=== PATIENT | female | born 1955 | race Caucasian/White ===

== ENCOUNTER 2017-08-03 08:43 | Inpatient (IN) | payer MEDICARE, OTHER ==
[~2017-08-03] VITALS: Ht 144.8 cm; Wt 82.2 kg
[~2017-08-03 08:43] MED LIST: ACET325 PO; ALBIPROI; ALBU.083IS; ALBU.083IS IH; ALBU3IS; ALBU90OI; ALBU90OI INH; ALBU90OI6 INH; ALBU90OI61; ALBUTEROL/ATROVENT; ALEN35 PO; ALUMAG30SU PO; AZIT250 PO; AZIT500 PO; BREO ELLIPTA 21 EACH IH; BROVANA; BUDE.25 NEB; CEFP250 PO; CEPH500 PO; CYCL10 PO; DIAZEPAM; DOXY100 PO; ERGO50000 PO; ESOM20 PO; ESTROGEN; FLUSAL5005; FURO40; FURO40 PO; GAMMAGARD S-D 55 GM IV; HYDACE10B; HYDACE10B PO; HYDACE5 PO; IPRAIS; IPRAIS NEB; LEVFLO500 PO; LORA1 PO; METPRE4DP PO; MORP15ER PO; MORP30ER PO; NITR100; OXYACE7.5T PO; OXYC5 PO; OXYGEN; PANT40; PANT40 PO; POTA10T; POTA10T PO; POTCHL20ER; POTCHL20ER PO; PRED10 PO; PRED20; PRED20 PO; PREG75 PO; PRO AIR; PROACE100; PROM25 PO; RXHYDACE PO; STOOL SOFTNER; SULTRIDS PO; TEMA15 PO; TEMAZEPAM; [UNRECOGNIZED DRUG - CODE]; [UNRECOGNIZED DRUG - OTHER]
[2017-08-03 09:57] LABS: BASOPHILS ABSOLUTE AUTO 0.01 K/mm3 (0.00-0.23); BASOPHILS PERCENT AUTO 0 % (0-2); EOSINOPHILS PERCENT AUTO 0 % (0-6); Hematocrit 50.4 % (33.0-51.0); Hemoglobin 16.4 g/dL (11.5-16.0); IMMATURE GRAN ABSOLUTE AUTO 0.04 K/mm3 (0.00-0.10); IMMATURE GRAN PERCENT AUTO 0 % (0-1); LYMPHOCYTES ABSOLUTE AUTO 1.44 K/mm3 (0.84-5.20); LYMPHOCYTES PERCENT AUTO 12 % (21-46); MONOCYTES ABSOLUTE AUTO 1.53 K/mm3 (0.16-1.47); MONOCYTES PERCENT AUTO 13 % (4-13); Mean Corpuscular HGB 28.8 pg (26.0-34.0); Mean Corpuscular HGB Conc 32.5 g/dL (31.5-36.5); Mean Corpuscular Volume 88 fL (80-100); Mean Platelet Volume 10.4 fL (9.1-12.4); NEUTROPHILS PERCENT AUTO 75 % (41-73); Platelet Count 286 K/mm3 (150-400); RDW Coefficient Variation 15.5 % (11.7-14.2); RDW Standard Deviation 50.1 fL (35.1-46.3); White Blood Cell Count 11.82 K/mm3 (4.00-11.30)
[2017-08-03 10:10] LABS: Influenza A Positive (NEGATIVE); Influenza B Negative (NEGATIVE)
[2017-08-03 10:17] LABS: Alanine Aminotransfer (ALT/SGP 36 U/L (12-78); Albumin, Blood 3.5 g/dL (3.4-5.0); Albumin/Globulin Ratio 0.8 (0.8-1.8); Alk Phos 109 U/L (50-136); Anion Gap 8 mmol/L (6-16); Aspartate Aminotrans (AST/SGOT 26 U/L (12-37); Bilirubin, Total 0.5 mg/dL (0.1-1.0); Blood Urea Nitrogen 10 mg/dL (8-24); Bun/Creatinine Ratio 10.7 (12.0-20.0); CO2, Blood 28 mmol/L (21-32); Calcium, Blood 8.7 mg/dL (8.5-10.1); Chloride, Blood 104 mmol/L (98-108); Creatinine, Blood 0.94 mg/dL (0.40-1.00); Globulin, Blood 4.2 g/dL (2.2-4.0); Glomerular Filtration Rate >60 (60-); Glucose, Blood 88 mg/dL (70-99); Magnesium, Blood 2.1 mg/dL (1.6-2.4); Potassium, Blood 3.6 mmol/L (3.5-5.5); Sodium, Blood 140 mmol/L (136-145); Total Protein, Blood 7.7 g/dL (6.4-8.2); Troponin I <0.015 ng/mL (0.000-0.040)
[2017-08-03] MEDS ORDERED: ALBU90OI6 INH (10:41)
[2017-08-04 04:25] LABS: Anion Gap 8 mmol/L (6-16); Blood Urea Nitrogen 12 mg/dL (8-24); Bun/Creatinine Ratio 17.5 (12.0-20.0); CO2, Blood 24 mmol/L (21-32); Chloride, Blood 108 mmol/L (98-108); Creatinine, Blood 0.69 mg/dL (0.40-1.00); Glomerular Filtration Rate >60 (60-); Glucose, Blood 149 mg/dL (70-99); Potassium, Blood 4.3 mmol/L (3.5-5.5); Sodium, Blood 140 mmol/L (136-145)
[2017-08-04 04:26] LABS: Calcium, Blood 7.7 mg/dL (8.5-10.1)
[2017-08-04 17:07] LABS: Source, Urine Voided
[2017-08-04 17:40] LABS: Appearance, Urine Clear (Clear); Bilirubin, Urine Neg (Neg); Blood, Urine 3+ (Neg); Color, Urine Yellow (P-Yellow); Glucose Qualitative, Urine Neg (Neg); Ketones, Urine Neg (Neg); Leukocyte Esterase, Urine Neg (Neg); Nitrite, Urine Neg (Neg); Protein, Urine Neg (Neg); Urobilinogen, Urine NORM (Normal)
[2017-08-04 18:20] LABS: Bacteria Few /hpf; Red Blood Cells, Urine 0-2 /hpf (0-2); Squamous Epithelial Cells Few /hpf (Few); White Blood Cells, Urine 0-2 /hpf (0-5)
[2017-08-06] MEDS ORDERED: AZIT250 PO (10:19)
[2017-08-06] MEDS ORDERED: OSEL75CA PO (10:20)
== END 2017-08-06 12:02 | disposition home or self-care (01) | DRG 193 ==
LOC: ER 08:43 → PCU 10:00 → ERHOLD 10:00 → PCU 11:38 → EDPENDDIS 08-06 08:42 → ENPENDDIS 08-06 08:42 → PCU 08-06 12:02
PROVIDERS: Emergency Medicine; Family Medicine; Psychiatry & Neurology Psychiatry
DX: J10.1 Influenza due to other identified influenza virus with other respiratory manifestations (principal); J96.21 Acute and chronic respiratory failure with hypoxia; J45.901 Unspecified asthma with (acute) exacerbation; I11.0 Hypertensive heart disease with heart failure; I50.9 Heart failure, unspecified; Z99.81 Dependence on supplemental oxygen; K21.9 Gastro-esophageal reflux disease without esophagitis; M81.0 Age-related osteoporosis without current pathological fracture; M79.7 Fibromyalgia; G89.29 Other chronic pain; M54.9 Dorsalgia, unspecified; Z79.52 Long term (current) use of systemic steroids; Z79.899 Other long term (current) drug therapy; Z88.5 Allergy status to narcotic agent; Z91.018 Allergy to other foods; Z87.891 Personal history of nicotine dependence
CPT/HCPCS: 36415; 71045; 80048; 80053; 81001; 82947; 83735; 84484; 85025; 87804; 93005; 93010; 94640; 94644; 94760; 96365; 96375; 99285; J1650; J2930; J3475; J7030

== ENCOUNTER 2018-04-20 10:10 | Emergency (ER) | payer OTHER, MEDICARE ==
[~2018-04-20] VITALS: Ht 144.8 cm; Wt 78.0 kg
[~2018-04-20 10:10] MED LIST changes: +OSEL75CA PO
[2018-04-20] MEDS ORDERED: CYCL10 PO (11:40)
== END 2018-04-20 11:45 | disposition home or self-care (01) ==
LOC: ER 10:10
DX: M25.512 Pain in left shoulder (principal); M54.2 Cervicalgia; J45.909 Unspecified asthma, uncomplicated; I50.9 Heart failure, unspecified; K21.9 Gastro-esophageal reflux disease without esophagitis; Z87.891 Personal history of nicotine dependence; Z88.8 Allergy status to other drugs, medicaments and biological substances; Z88.5 Allergy status to narcotic agent; Z79.899 Other long term (current) drug therapy; Z79.52 Long term (current) use of systemic steroids; Z79.51 Long term (current) use of inhaled steroids; V89.2XXA Person injured in unspecified motor-vehicle accident, traffic, initial encounter
CPT/HCPCS: 99283

== ENCOUNTER 2018-12-25 16:48 | Observation (INO) | payer MEDICARE, OTHER ==
[~2018-12-25] VITALS: Ht 152.4 cm; Wt 82.8 kg
[~2018-12-25 16:48] MED LIST changes: +Percocet 5-3251 EACH PO
[2018-12-25 17:25] LABS: BASOPHILS ABSOLUTE AUTO 0.06 K/mm3 (0.00-0.23); BASOPHILS PERCENT AUTO 0 % (0-2); EOSINOPHILS ABSOLUTE AUTO 0.16 K/mm3 (0.00-0.68); EOSINOPHILS PERCENT AUTO 1 % (0-6); Hematocrit 51.6 % (33.0-51.0); Hemoglobin 16.3 g/dL (11.5-16.0); IMMATURE GRAN ABSOLUTE AUTO 0.12 K/mm3 (0.00-0.10); IMMATURE GRAN PERCENT AUTO 1 % (0-1); LYMPHOCYTES ABSOLUTE AUTO 4.71 K/mm3 (0.84-5.20); LYMPHOCYTES PERCENT AUTO 18 % (21-46); MONOCYTES PERCENT AUTO 8 % (4-13); Mean Corpuscular HGB 28.4 pg (26.0-34.0); Mean Corpuscular HGB Conc 31.6 g/dL (31.5-36.5); Mean Corpuscular Volume 90 fL (80-100); Mean Platelet Volume 10.4 fL (9.1-12.4); NEUTROPHILS ABSOLUTE AUTO 18.54 K/mm3 (1.96-9.15); NEUTROPHILS PERCENT AUTO 72 % (41-73); Platelet Count 278 K/mm3 (150-400); RDW Coefficient Variation 14.1 % (11.7-14.2); RDW Standard Deviation 46.7 fL (35.1-46.3); Red Blood Cell Count 5.73 M/mm3 (3.80-5.20); White Blood Cell Count 25.69 K/mm3 (4.00-11.30)
[2018-12-25 17:42] LABS: Alanine Aminotransfer (ALT/SGP 29 U/L (12-78); Albumin, Blood 3.5 g/dL (3.4-5.0); Albumin/Globulin Ratio 0.9 (0.8-1.8); Alk Phos 123 U/L (50-136); Anion Gap 7 mmol/L (6-16); Aspartate Aminotrans (AST/SGOT 21 U/L (12-37); Bilirubin, Total 0.8 mg/dL (0.1-1.0); Blood Urea Nitrogen 12 mg/dL (8-24); Bun/Creatinine Ratio 12.8 (12.0-20.0); CO2, Blood 28 mmol/L (21-32); Calcium, Blood 9.1 mg/dL (8.5-10.1); Chloride, Blood 105 mmol/L (98-108); Creatinine, Blood 0.94 mg/dL (0.40-1.00); Globulin, Blood 3.9 g/dL (2.2-4.0); Glomerular Filtration Rate >60 (60-); Glucose, Blood 92 mg/dL (70-99); Potassium, Blood 3.8 mmol/L (3.5-5.5); Sodium, Blood 140 mmol/L (136-145); Total Protein, Blood 7.4 g/dL (6.4-8.2); Troponin I <0.015 ng/mL (0.000-0.040)
[2018-12-25 18:21] LABS: PCO2 Arterial 31.8 mmHg (35-45); PO2 Arterial 69.5 mmHg (80-100); pH Blood Arterial 7.51 (7.35-7.45)
[2018-12-25] MEDS ORDERED: POTCHL10ER PO (20:27)
[2018-12-25] MEDS ORDERED: LORA1 PO (20:27)
[2018-12-25] MEDS ORDERED: TEMA15 PO (20:28)
[2018-12-25] MEDS ORDERED: OXYC5 PO (20:29)
[2018-12-26 04:43] LABS: Anion Gap 11 mmol/L (6-16); Blood Urea Nitrogen 13 mg/dL (8-24); CO2, Blood 23 mmol/L (21-32); Calcium, Blood 8.2 mg/dL (8.5-10.1); Chloride, Blood 104 mmol/L (98-108); Creatinine, Blood 0.87 mg/dL (0.40-1.00); Glomerular Filtration Rate >60 (60-); Glucose, Blood 162 mg/dL (70-99); Potassium, Blood 4.3 mmol/L (3.5-5.5); Sodium, Blood 138 mmol/L (136-145); Troponin I <0.015 ng/mL (0.000-0.040)
--- NOTE | 2018-12-26 07:23 | NUR ---
NURSING PCU DAYSHIFT: Assumed care of pt at approx 0700. A/O, pleasant, cooperative w/care, mildly anxious this a.m. d/t current medical status. C/O chronic pain in back, treating w/meds as ordered. Skin is intact w/no breakdown noted. Ambulates independently and w/o difficulty. Tele in place, NSR w/PVC's, no c/o CP/pressure, BP stable, no noted edema. L/S w/expiratory wheezes t/o and fine bibasilar crackles, dyspnea w/exertion, O2 sat mid 90's on RA, occ dry/NATURAL FABRICATOR cough, continuous bedside O2 monitoring. Abd SNT, BT+, voiding w/o difficulty per pt. PIV x1, s/l. No s/s of acute distress at this time. Mother at bedside. Plan of care discussed, pt and family deny any questions at this time. Awaiting rounding from PMD, cont to monitor for any changes.
--- NOTE | 2018-12-26 07:37 | NUR ---
SHIFT SUMMARY PATIENT ADMITTED LAST NIGHT AND WAS ABLE TO TRANSFER SELF FROM THE RNEY TO THE BED. UPON ADMIT TO THE FLOOR PATIENT ALREADY STATES THAT HER BREATHING IS, "SO MUCH BETTER," THAN WHEN SHE GOT HERE. DR MOORE NOTIFIED OF CRITICAL LACTIC RESULTS. NO ORDERS GIVEN AT THAT TIME. PATIENT PROVIDED PAIN MEDICATION FOR CHRONIC BACK PAIN PER EMAR. PATIENT APPEARED TO SLEEP WELL THROUGHOUT THE NIGHT. PATIENT'S MOTHER STAYED THE NIGHT AT THE BEDSIDE. PATIENT CURRENTLY SITTING UP IN HER BED, WATCHING TV. PATIENT DENIES ANY NEEDS AT THIS TIME. VITAL SIGNS CHARTED. REPORT GIVEN TO ON COMING RN.
[2018-12-26] MEDS ORDERED: ACET325 PO (15:32)
[2018-12-26] MEDS ORDERED: CEFP250 PO (15:33)
[2018-12-26] MEDS ORDERED: ALBU3IS INH (15:37)
--- NOTE | 2018-12-26 15:44 | NUR ---
NURSING PCU DISCHARGE SUMMARY: No acute changes noted t/o the shift. Update provided to PMD, discharge home d/o received. Pt verbalized understanding of all written and verbal discharge instructions. PIV dc'd w/cath intact, RX's called to [facility] per pt's request. Pt denies any questions/needs at this time, call light in reach, cont to monitor until discharge is completed.
== END 2018-12-26 16:05 | disposition home or self-care (01) ==
LOC: ER 16:48 → PCU 16:49 → ER 20:39 → PCU 20:39
PROVIDERS: Emergency Medicine; ADMIT Family Medicine
DX: J45.901 Unspecified asthma with (acute) exacerbation (principal); R07.9 Chest pain, unspecified; I50.9 Heart failure, unspecified; M54.9 Dorsalgia, unspecified; G89.29 Other chronic pain; M81.0 Age-related osteoporosis without current pathological fracture; F41.9 Anxiety disorder, unspecified; K21.9 Gastro-esophageal reflux disease without esophagitis; Z87.891 Personal history of nicotine dependence; Z91.018 Allergy to other foods; Z79.899 Other long term (current) drug therapy; Z79.52 Long term (current) use of systemic steroids
CPT/HCPCS: 36415; 36600; 71045; 80048; 80053; 82803; 82947; 83605; 83690; 83735; 83880; 84484; 85025; 93005; 93010; 94640; 94644; 94762; 96365; 96366; 96375; 99285-25; J0456; J0696; J1100; J1650; J1956; J2930; J7050

== ENCOUNTER 2020-02-08 12:16 | Emergency (ER) | payer MEDICARE, OTHER ==
[~2020-02-08] VITALS: Ht 144.8 cm; Wt 73.5 kg
[~2020-02-08 12:16] MED LIST changes: +ALBU3IS INH; +POTCHL10ER PO
[2020-02-08] MEDS ORDERED: KETO10 PO (15:23)
== END 2020-02-08 15:30 | disposition home or self-care (01) ==
LOC: ER 12:16
DX: M75.82 Other shoulder lesions, left shoulder (principal); Z88.5 Allergy status to narcotic agent; Z88.8 Allergy status to other drugs, medicaments and biological substances; Z79.899 Other long term (current) drug therapy; Z79.52 Long term (current) use of systemic steroids; J45.909 Unspecified asthma, uncomplicated; K21.9 Gastro-esophageal reflux disease without esophagitis; I50.9 Heart failure, unspecified
CPT/HCPCS: 73030; 96372; 99283-25; J1885

== ENCOUNTER 2022-07-31 08:54 | Inpatient (IN) | payer MEDICARE, OTHER ==
[~2022-07-31] VITALS: Ht 157.5 cm; Wt 68.9 kg
[~2022-07-31 08:54] MED LIST changes: +KETO10 PO
[2022-07-31 09:26] LABS: BASOPHILS ABSOLUTE AUTO 0.07 K/mm3 (0.00-0.23); BASOPHILS PERCENT AUTO 0 % (0-2); EOSINOPHILS ABSOLUTE AUTO 0.04 K/mm3 (0.00-0.68); EOSINOPHILS PERCENT AUTO 0 % (0-6); Hematocrit 50.7 % (33.0-51.0); Hemoglobin 16.8 g/dL (11.5-16.0); IMMATURE GRAN ABSOLUTE AUTO 0.19 K/mm3 (0.00-0.10); IMMATURE GRAN PERCENT AUTO 1 % (0-1); LYMPHOCYTES ABSOLUTE AUTO 2.42 K/mm3 (0.84-5.20); LYMPHOCYTES PERCENT AUTO 14 % (21-46); MONOCYTES ABSOLUTE AUTO 1.64 K/mm3 (0.16-1.47); MONOCYTES PERCENT AUTO 10 % (4-13); Mean Corpuscular HGB 28.4 pg (26.0-34.0); Mean Corpuscular HGB Conc 33.1 g/dL (31.5-36.5); Mean Corpuscular Volume 86 fL (80-100); NEUTROPHILS ABSOLUTE AUTO 12.89 K/mm3 (1.96-9.15); NEUTROPHILS PERCENT AUTO 75 % (41-73); Platelet Count 315 K/mm3 (150-400); RDW Coefficient Variation 14.8 % (11.7-14.2); RDW Standard Deviation 46.8 fL (35.1-46.3); Red Blood Cell Count 5.92 M/mm3 (3.80-5.20); White Blood Cell Count 17.25 K/mm3 (4.00-11.30)
[2022-07-31 09:39] LABS: Base Excess Venous 11.1 mmol/L; Bicarbonate Venous 32.3 mmol/L (24.0-30.0); PCO2 Venous 57.1 mmHg (38-42); pH Blood Venous 7.41 (7.34-7.37)
[2022-07-31 09:44] LABS: Calcium, Blood 8.8 mg/dL (8.5-10.1); Creatinine, Blood 0.79 mg/dL (0.40-1.00); Potassium, Blood 3.9 mmol/L (3.5-5.5)
[2022-07-31 10:22] LABS: Influenza A, PCR NEGATIVE (NEGATIVE); Influenza B, PCR NEGATIVE (NEGATIVE); SARS-Cov-2 (COVID-19) PCR, MMC NEGATIVE (NEGATIVE)
[2022-07-31 10:25] LABS: Resp Syncytial Virus, PCR POSITIVE (NEGATIVE)
[2022-07-31 15:30] LABS: Base Excess Venous 5.8 mmol/L; Bicarbonate Venous 28.4 mmol/L (24.0-30.0); PCO2 Venous 49.6 mmHg (38-42); PO2 Venous 80.9 mmHg (38-42)
--- NOTE | 2022-07-31 18:27 | NUR ---
RN SHIFT SUMMARY. PT ARRIVES FROM ED THIS EVENING, ALERT, ORIENTED, NONDISTRESSED. ON 3LO2, BUT INCREASED TO PTS HOME O2 BASELINE OF 4L VIA NC. BILATERAL LUNG SOUNDS WHEEZY AND TIGHT, RT AWARE. PT REQUESTING BREATHING TREATMENT AND CALL PLACED TO NOTIFY RT. PT C/O HEADACHE AT END OF SHIFT, CALL PLACED TO HOSPITALIST AND AWAITING RESPONSE. SHE WAS REQUESTING TYLENOL BUT HAS ALLERGY LISTED, HOWEVER REPORTS SHE HAS RECENTLY TAKEN WITHOUT ISSUE. NO OTHER SIGNIFICANT CHANGES THROUGHOUT THIS SHIFT, PULSE IN 80S NSR, O2 ABOVE 95%, BP STABLE.
--- NOTE | 2022-08-01 06:39 | NUR ---
PROCESSING TECHNOLOGIST SUMMARY ASSUMED CARE OF THE PT AT 1900. SHE IS ALERT AND ORIENTED X4, SBA BUT MOSTLY INDEPENDENT TO BSC THROUGHOUT THE NIGHT. PT IS ON 4L BY PA AND HAS BEEN SATTING >92% BUT DOES REPORT DYSPNEA WITH AMBULATION. SHE SAYS THAT SHE HAS BEEN COUGHING UP GREEN SPUTUM AND IS CONCERNED FOR PNA. PT REPORTS SOME WEAKNESS BUT ADMITS TO HISTORY OF FIBROMYALGIA. PT HAS BEEN SINUS IN THE 70S AND 80S WITH NO COMPLAINTS OF CHEST PAIN. SHE WAS MEDICATED WITH HER SCHEDULED PAIN MEDS FOR CHRONIC PAIN AND GIVEN TYLENOL X1 FOR A HEADACHE.
--- NOTE | 2022-08-01 17:00 | NUR ---
ASSUMED CARE OF PT AT 0700 THIS AM. PT STATUS CHANGED TO MEDICAL W/O TELEMETRY. BLOOD CULTURES + IN 1/2 BOTTLES, DR ORTIZ NOTIFIED AND PT STARTED ON ABX. PT HAS BEEN AFEBRILE. NO OTHER CHANGES IN CONDITION NOTED T/O THE SHIFT, PT REMAINS ON 4L O2 VIA NC, NEB TX PER RT. SEE DOCUMENTED VS AND ASSESSMENT. PT IS ABLE TO USE CALL LIGHT FOR NEEDS, CALL LIGHT IN REACH, WILL CONTINUE TO MONITOR AND GIVE REPORT TO NOC SHIFT RN.
--- NOTE | 2022-08-01 18:54 | NUR ---
pt arrived to the medical floor from pcu via wheelchair. pt is a/ox4, pleasant and cooperative. pt is sob with mionimal excertion. the pt was oriented to the room layout and call system. call light in reach
--- NOTE | 2022-08-02 04:03 | NUR ---
SHIFT SUMMARY NO OVERNIGHT EVENTS. PT REMAINS ON 4LO2, NONPRODUCTIVE COUGH, VERY WHEEZY/TIGHT LUNG SOUNDS. SOB AT BEGINING OF SHIFT WITH TALKING. RT ADMINISTERED DUONEBS THAT HAVE BEEN EFFECTIVE FOR PT. DENIES ANY OTHER S/S OF DISTRESS. CHRONIC PAIN. PT UP TO BSC INDEPENDENTLY. PT ORIENTED X4, ABLE TO MAKE NEEDS KNOWN, CALL LIGHT IN REACH.
--- NOTE | 2022-08-02 15:59 | NUR ---
PT IS A/OX4, PLEASANT AND COOPERATIVE. THE PT IS UP IND TO THE BSC. PT IS VERY SOB WITH ACTIVITY AND AT REST AT TIMES ALSO. PT CONTINUES ON 4L/MIN O2 VIA NC. THE PT WAS MEDICATED FOR [place] THIS AM GIVEN TYLENOL. PT APPEARS FLUSHED. CALL LIGHT IN REACH. WILL CONTINUE TO MONITOR AND ASSESS FOR CHANGES
--- NOTE | 2022-08-03 04:35 | NUR ---
SHIFT SUMMARY NOC PT A/O X 4. PT ON 4L/NC. NO C/O SOB. VSS. NO ACUTE CHANGES THIS SHIFT. PT STILL ON ABX TO TX RSV INFECTION. PT PLEASANT AND COOPERATIVE TO CARE. PT CURRENTLY HAS VANCOMYCIN INFUSING. PT IS RESTING IN BED WITH BED IN LOWEST POSITION, CALL LIGHT WITHIN REACH. WCTM.
--- NOTE | 2022-08-03 16:52 | NUR ---
SHIFT SUMMARY NO ACUTE CHANGES THIS SHIFT. PT'S VANCOMYCIN WAS DISCONTINUED. SHE RECEIVED BREATHING TREATMENTS T/O THE SHIFT, TOLERATING THEM WELL. SHE HAD A FRIEND VISIT AND SHE STAYED AT THE BS FOR A COUPLE OF HOURS. SHE HAS HAD NO C/O OF N/V/D. SHE DID C/O SOME JOINT PAIN THIS AM AND WAS MEDICATED PER THE EMAR. NO COMPLAINTS OF PAIN SINCE. SHE IS AOX4 AND COOPERATIVE. WILL REPORT TO ONCOMING NURSE.
--- NOTE | 2022-08-04 04:56 | NUR ---
PT 4L NC SATS ABOVE 90, INSPIRATORY AND EXPIRATORY WHEEZES, PT IS INDEPENDENT WITH ADLS, PRN PAIN MEDICATION GIVEN, PT RESTING NO ACUTE OVERNIGHT EVENTS
--- NOTE | 2022-08-04 16:09 | NUR ---
SHIFT SUMMARY: PT A&O X4, PLEASANT, [place], COMMUNICATES WELL HAS MILD DYSPNEA WITH TALKING AND MOVEMENT AND MILD FLUSHING IN THE FACE. PT LS EXPIRATORY AND INSPIRATORY WHEEZING, PT RECVIED BREATHING TREATMENT FROM RT. PT RECEVIED SOLUMEDROL 60MG IV, PT BREATHING IMRPOVED. PT HAD MILD HEADACHE AND MEDICATED PER EMAR PROTOCOL. PT UP IN CHAIR FOR LUNCH AND DINNER, PT REQUIRED SBA WITH TRANSFERS. PT IN CHAIR WITH CALL LIGHT AND BEDSIDE TABLE WITHIN REACH.
--- NOTE | 2022-08-05 06:29 | NUR ---
PT IS A&O4, INDEPENDENT OF ADLS, 4L NC AT BASELINE, PT RESTED COMFORTABLY NO ACUTE OVERNIGHT EVENTS
[2022-08-05] MEDS ORDERED: IPRAT-ALBUT 0.5-3 ML INH (12:02)
[2022-08-05] MEDS ORDERED: PRED20 PO (12:06)
[2022-08-05] MEDS ORDERED: FLUT1DIS5 INH (12:10)
--- NOTE | 2022-08-05 13:30 | NUR ---
DISCHARGE NOTE: PT A&O X4, PLEASANT, ABLE TO VOICE NEEDS. PT IV REMOVED W/O DIFFICULTY AND CATHETER INTACTED. PT EDUCATED ON DISCHARGE MEDICATIONS AND FOLLOWING UP WITH PCP IN ONE WEEK. PT HAD HOME O2 TANK BROUGHT BY SON TO TRANSPORT HOME ON 4L NC. PT DRESSED AND PACK PERSONAL BELONGS INDEPENDANTLY. PT ESCORTED VIA WC TO LOBBY AND SON PRESENT.
== END 2022-08-05 14:00 | disposition home or self-care (01) | DRG 189 ==
LOC: ER 08:54 → ERHOLD 12:28 → MEDS 12:28 → PCU 15:47 → MEDS 08-01 17:58
PROVIDERS: Nurse Practitioner Acute Care; Student in an Organized Health Care Education/Training Program; ADMIT Internal Medicine
DX: J96.21 Acute and chronic respiratory failure with hypoxia (principal); E87.20 Acidosis, unspecified; F11.20 Opioid dependence, uncomplicated; J45.51 Severe persistent asthma with (acute) exacerbation; J96.22 Acute and chronic respiratory failure with hypercapnia; Z20.822 Contact with and (suspected) exposure to COVID-19; K21.9 Gastro-esophageal reflux disease without esophagitis; I50.9 Heart failure, unspecified; D72.828 Other elevated white blood cell count; M81.0 Age-related osteoporosis without current pathological fracture; B97.4 Respiratory syncytial virus as the cause of diseases classified elsewhere; M54.9 Dorsalgia, unspecified; G89.29 Other chronic pain; Z98.891 History of uterine scar from previous surgery; Z90.49 Acquired absence of other specified parts of digestive tract; Z90.710 Acquired absence of both cervix and uterus; Z90.89 Acquired absence of other organs; Z88.6 Allergy status to analgesic agent; Z88.8 Allergy status to other drugs, medicaments and biological substances; Z79.52 Long term (current) use of systemic steroids; Z79.899 Other long term (current) drug therapy
CPT/HCPCS: 0241U; 36415; 71045; 80048; 82803; 83605; 84145; 85025; 87040; 93005; 93010; 94640; 94644; 94664; 94760; 94762; 96365; 96366; 96367; 96375; 99285-25; A9270; J0696; J1650; J2930; J3370; J3475; J7030; J7050

== ENCOUNTER 2023-08-05 22:02 | Observation (INO) | payer MEDICARE, OTHER ==
[~2023-08-05] VITALS: Ht 144.8 cm; Wt 71.2 kg
[~2023-08-05 22:02] MED LIST changes: +FLUT1DIS5 INH; +IPRAT-ALBUT 0.5-3 ML INH
[2023-08-05] MEDS ORDERED: Albuterol 2.5 MG/3 ML VIAL INH SCH (22:10)
[2023-08-05 22:15] LABS: Base Excess Venous 5.1 mmol/L; Bicarbonate Venous 27.8 mmol/L (24.0-30.0); PCO2 Venous 45.8 mmHg (38-42); pH Blood Venous 7.42 (7.34-7.37)
[2023-08-05 22:17] LABS: BASOPHILS ABSOLUTE AUTO 0.07 K/mm3 (0.00-0.23); BASOPHILS PERCENT AUTO 1 % (0-2); EOSINOPHILS ABSOLUTE AUTO 0.46 K/mm3 (0.00-0.68); EOSINOPHILS PERCENT AUTO 4 % (0-6); Hematocrit 50.7 % (33.0-51.0); Hemoglobin 16.9 g/dL (11.5-16.0); IMMATURE GRAN ABSOLUTE AUTO 0.04 K/mm3 (0.00-0.10); IMMATURE GRAN PERCENT AUTO 0 % (0-1); LYMPHOCYTES ABSOLUTE AUTO 4.47 K/mm3 (0.84-5.20); LYMPHOCYTES PERCENT AUTO 35 % (21-46); MONOCYTES PERCENT AUTO 12 % (4-13); Mean Corpuscular HGB Conc 33.3 g/dL (31.5-36.5); Mean Corpuscular Volume 87 fL (80-100); Mean Platelet Volume 9.3 fL (9.1-12.4); NEUTROPHILS ABSOLUTE AUTO 6.23 K/mm3 (1.96-9.15); NEUTROPHILS PERCENT AUTO 49 % (41-73); Platelet Count 237 K/mm3 (150-400); RDW Coefficient Variation 15.3 % (11.7-14.2); RDW Standard Deviation 48.5 fL (35.1-46.3); Red Blood Cell Count 5.83 M/mm3 (3.80-5.20); White Blood Cell Count 12.77 K/mm3 (4.00-11.30)
[2023-08-05 22:34] LABS: Bun/Creatinine Ratio 22.2 (12.0-20.0); Calcium, Blood 8.9 mg/dL (8.5-10.1); Creatinine, Blood 0.81 mg/dL (0.40-1.00); Potassium, Blood 3.7 mmol/L (3.5-5.5)
[2023-08-05 23:05] LABS: Influenza A, PCR NEGATIVE (NEGATIVE); Influenza B, PCR NEGATIVE (NEGATIVE); Resp Syncytial Virus, PCR NEGATIVE (NEGATIVE); SARS-Cov-2 (COVID-19) PCR, MMC NEGATIVE (NEGATIVE)
[2023-08-05] MEDS ORDERED: Lactated Ringer's 1,000 ML IV ONE (23:40)
[2023-08-05 23:44] LABS: Base Excess Venous 5.3 mmol/L; Bicarbonate Venous 27.6 mmol/L (24.0-30.0); PCO2 Venous 54.7 mmHg (38-42); pH Blood Venous 7.36 (7.34-7.37)
[2023-08-06] MEDS ORDERED: Albuterol 2.5 MG/3 ML VIAL INH SCH ×2 (00:55→03:00)
[2023-08-06 02:12] LABS: Base Excess Venous 2.6 mmol/L; Bicarbonate Venous 25.9 mmol/L (24.0-30.0); PCO2 Venous 48.9 mmHg (38-42); pH Blood Venous 7.37 (7.34-7.37)
[2023-08-06 02:39] LABS: Bun/Creatinine Ratio 24.2 (12.0-20.0); Calcium, Blood 8.3 mg/dL (8.5-10.1); Creatinine, Blood 0.75 mg/dL (0.40-1.00)
[2023-08-06] MEDS ORDERED: Acetaminophen 325 MG TABLET PO PRN (02:50)
[2023-08-06] MEDS ORDERED: FLU VACC QS2023-24(6MOS UP)/PF 60 MCG/0.5 ML SYRINGE IM ONE (02:50)
[2023-08-06] MEDS ORDERED: Albuterol 2.5 MG/3 ML VIAL INH PRN (03:00)
[2023-08-06] MEDS ORDERED: Potassium Chloride 20 MEQ TabCR PO ONE ×2 (03:00→04:35)
[2023-08-06 03:37] LABS: Base Excess Venous -0.6 mmol/L; PCO2 Venous 39.7 mmHg (38-42); pH Blood Venous 7.39 (7.34-7.37)
[2023-08-06] MEDS ORDERED: Azithromycin 500 MG in NS 250 ML IV SCH (04:00)
[2023-08-06] MEDS ORDERED: Morphine Sulfate IR 15 MG Tab PO PRN (04:15)
[2023-08-06] MEDS ORDERED: Ipratropium/Albuterol SulF 2.5-0.5MG/3 ML Amp INH SCH (07:00)
[2023-08-06 07:02] LABS: BASOPHILS ABSOLUTE AUTO 0.01 K/mm3 (0.00-0.23); BASOPHILS PERCENT AUTO 0 % (0-2); EOSINOPHILS PERCENT AUTO 0 % (0-6); Hematocrit 47.3 % (33.0-51.0); Hemoglobin 15.8 g/dL (11.5-16.0); IMMATURE GRAN ABSOLUTE AUTO 0.02 K/mm3 (0.00-0.10); IMMATURE GRAN PERCENT AUTO 0 % (0-1); LYMPHOCYTES ABSOLUTE AUTO 0.51 K/mm3 (0.84-5.20); LYMPHOCYTES PERCENT AUTO 6 % (21-46); MONOCYTES ABSOLUTE AUTO 0.09 K/mm3 (0.16-1.47); MONOCYTES PERCENT AUTO 1 % (4-13); Mean Corpuscular HGB 29.3 pg (26.0-34.0); Mean Corpuscular HGB Conc 33.4 g/dL (31.5-36.5); Mean Corpuscular Volume 88 fL (80-100); Mean Platelet Volume 9.4 fL (9.1-12.4); NEUTROPHILS ABSOLUTE AUTO 7.35 K/mm3 (1.96-9.15); NEUTROPHILS PERCENT AUTO 92 % (41-73); Platelet Count 212 K/mm3 (150-400); RDW Coefficient Variation 15.5 % (11.7-14.2); RDW Standard Deviation 50.2 fL (35.1-46.3); Red Blood Cell Count 5.39 M/mm3 (3.80-5.20); White Blood Cell Count 7.98 K/mm3 (4.00-11.30)
[2023-08-06 07:22] LABS: Albumin, Blood 2.8 g/dL (3.4-5.0); Albumin/Globulin Ratio 0.8 (0.8-1.8); Bilirubin, Total 0.7 mg/dL (0.1-1.0); Bun/Creatinine Ratio 23.5 (12.0-20.0); Calcium, Blood 8.3 mg/dL (8.5-10.1); Creatinine, Blood 0.64 mg/dL (0.40-1.00); Globulin, Blood 3.7 g/dL (2.2-4.0); Magnesium, Blood 2.3 mg/dL (1.6-2.4); Potassium, Blood 3.6 mmol/L (3.5-5.5); Total Protein, Blood 6.5 g/dL (6.4-8.2)
[2023-08-06] MEDS ORDERED: Enoxaparin 40 MG/0.4 ML SYR SC SCH (09:00)
[2023-08-06] MEDS ORDERED: Lactobacil 2-S.Thermo-Bifido 1 1 Cap PO SCH (09:00)
[2023-08-06] MEDS ORDERED: PredniSONE 20 MG Tab PO SCH (09:00)
[2023-08-06] MEDS ORDERED: Docusate Sodium 100 MG Cap PO SCH (09:00)
[2023-08-06] MEDS ORDERED: Furosemide 40 MG Tab PO SCH (09:00)
[2023-08-06 09:06] VITALS: BP 120/71
[2023-08-06 15:55] VITALS: BP 110/69
--- NOTE | 2023-08-06 19:34 | NUR ---
SHIFT SUMMARY; PATIENT ARRIVED TO FLOOR SONOGRAPHY TECHNICIAN. SHE IS AO X 4. ON 4 LITERS NASAL CANNULA. USES CALL LLIGHT APPROPRIATELY. TAKES HER PILLS WITH APPLESAUCE. LUNGS ARE TIGHT WITH WHEEZES NOTED IN UPPER RIGHT LOBE AND LOWER LEFT LOBE. FAMILY VISITS TODAY AND ARE VERY SUPPORTIVE OF NARCISO AND HAS PLAN FOR HER DISCHARGE.
[2023-08-06 19:50] VITALS: BP 118/62
--- NOTE | 2023-08-07 05:20 | NUR ---
SHIFT SUMMARY PATIENT IS ALERT AND ORIENTED. PATIENT HAS NOT HAD ANY ACUTE EVENTS THIS SHIFT. PATIENT HAS BEEN MEDICATED FOR BACK PAIN ONCE AND HEADACHE ONCE PER EMAR. PATIENT STATES BACK PAIN IS CHRONIC. PATIENT HAS NOT COMPLAINED OF SOB, NAUSEA OR VOMITTING THIS SHIFT. PATIENT IS STILL ON 4-5L OF NC THIS SHIFT. BED IN LOCKED AND LOWEST POSITION. CALL LIGHT IN PLACE. WILL MONITOR UNTIL SHIFT CHANGE.
[2023-08-07 05:31] LABS: Bun/Creatinine Ratio 21.1 (12.0-20.0); Calcium, Blood 8.1 mg/dL (8.5-10.1); Creatinine, Blood 0.76 mg/dL (0.40-1.00); Potassium, Blood 3.9 mmol/L (3.5-5.5)
[2023-08-07 05:40] VITALS: BP 109/69
[2023-08-07] MEDS ORDERED: Ipratropium/Albuterol SulF 2.5-0.5MG/3 ML Amp INH SCH (07:00)
[2023-08-07 07:33] VITALS: BP 105/61
[2023-08-07] MEDS ORDERED: Potassium Chloride 20 MEQ TabCR PO SCH (09:00)
--- NOTE | 2023-08-07 09:00 | NUR ---
pt laying in bed awake a/ox4, pleasant and cooperative with care, follows commands well, reports pain, pain meds were administered, lungs are a bit course in upper, dim in bases, on 4 liters 02 via n/c, resp even and unlabored, occ harsh cough, hrr, no edema noted, ppp+1, cap refill <3 sec, vs stable, afebrile, iv site is clear and patent, but leaking, will remove, btx4, abd flat soft nontender, voids without diff, skin c/w/d, maew, shanta, call light in reach.
--- NOTE | 2023-08-07 10:22 | NUR ---
Upon receiving a referral for spiritual care, I visited the patient. She tells me about her medical history, the deathss of her father, son and brother and her Tenriism rafael journey. She explains about the anxiety she feels when she experiences air hunger. We explore ways to manage the anxiety, and I normalize her fears and feelings, and provide anxiety containment, grief support, therapeutic listening and prayer. Patient responded well and showed signs of reduced stress. I will continue to remain available to patient and family.
[2023-08-07] MEDS ORDERED: Azithromycin 250 MG Tab PO ONE (11:00)
[2023-08-07] MEDS ORDERED: ALBU2.5V5 INH (12:15)
[2023-08-07] MEDS ORDERED: PRED20 PO (12:15)
[2023-08-07] MEDS ORDERED: LACT PO (12:16)
[2023-08-07] MEDS ORDERED: AZIT250 PO (12:16)
[2023-08-07] MEDS ORDERED: FLUT1DIS5 INH (12:17)
--- NOTE | 2023-08-07 12:40 | NUR ---
pt is being discharged to home, iv was removed intact, went over instructions with her, she verbalized understanding, new meds were faxed to [facility], will leave via wheelchair when her ride gets here. call light in reach.
--- NOTE | 2023-08-07 13:15 | NUR ---
pt left via wheelchair with all her belongings, and pressurised container filler in attendence.
== END 2023-08-07 13:17 | disposition home or self-care (01) ==
LOC: ER 22:02 → MEDS 22:03 → ER 08-06 02:47 → ERHOLD 08-06 02:47 → MEDS 08-06 09:04
PROVIDERS: Emergency Medicine; Family Medicine; ADMIT Student in an Organized Health Care Education/Training Program
DX: J96.21 Acute and chronic respiratory failure with hypoxia (principal); J96.22 Acute and chronic respiratory failure with hypercapnia; J44.9 Chronic obstructive pulmonary disease, unspecified; J45.50 Severe persistent asthma, uncomplicated; M81.0 Age-related osteoporosis without current pathological fracture; K21.9 Gastro-esophageal reflux disease without esophagitis; G89.29 Other chronic pain; I50.9 Heart failure, unspecified; Z99.81 Dependence on supplemental oxygen; Z79.899 Other long term (current) drug therapy; Z88.8 Allergy status to other drugs, medicaments and biological substances
CPT/HCPCS: 0241U; 36415; 71045; 80048; 80053; 82803; 83735; 83880; 84145; 85025; 93005; 93010; 94640; 94644; 94664; 94760; 96360; 96372; 99285-25; A9270; G0378; J0456; J1650; J7050; J7120; J7512

== ENCOUNTER 2024-01-08 18:39 | Emergency (ER) | payer OTHER, MEDICARE ==
[~2024-01-08] VITALS: Ht 147.3 cm; Wt 68.5 kg
[~2024-01-08 18:39] MED LIST changes: +ALBU2.5V5 INH; +LACT PO
[2024-01-08 19:13] VITALS: BP 135/83
[2024-01-08] MEDS ORDERED: Cephalexin Monohydrate 500 MG Cap PO ONE (21:30)
[2024-01-08] MEDS ORDERED: Diphth,Pertuss(Acell),Tet Vac 0.5 ML VIAL IM ONE (21:30)
[2024-01-09] MEDS ORDERED: AMOCLA875 PO (11:15)
== END 2024-01-08 21:42 | disposition home or self-care (01) ==
LOC: ER 18:39
DX: S81.812A Laceration without foreign body, left lower leg, initial encounter (principal); I50.9 Heart failure, unspecified; W01.0XXA Fall on same level from slipping, tripping and stumbling without subsequent striking against object, initial encounter; Z79.52 Long term (current) use of systemic steroids; Z79.899 Other long term (current) drug therapy; Z91.018 Allergy to other foods; Z88.5 Allergy status to narcotic agent; Z88.8 Allergy status to other drugs, medicaments and biological substances
CPT/HCPCS: 12002; 73590; 90471; 90715; 99283-25; A9270

== ENCOUNTER 2024-08-19 17:30 | Observation (INO) | payer MEDICARE, OTHER ==
[~2024-08-19] VITALS: Ht 157.5 cm; Wt 71.9 kg
[~2024-08-19 17:30] MED LIST changes: +AMOCLA875 PO
[2024-08-19] MEDS ORDERED: Albuterol 2.5 MG/3 ML VIAL INH SCH (17:45)
[2024-08-19] MEDS ORDERED: MethylPREDNISolone Sod Succ 125 MG Vial IV ONE (17:45)
[2024-08-19 18:29] LABS: Albumin, Blood 3.3 g/dL (3.4-5.0); Albumin/Globulin Ratio 0.8 (0.8-1.8); Bilirubin, Total 0.8 mg/dL (0.1-1.0); Bun/Creatinine Ratio 25.2 (12.0-20.0); Calcium, Blood 9.2 mg/dL (8.5-10.1); Creatinine, Blood 0.63 mg/dL (0.40-1.00); Globulin, Blood 4.2 g/dL (2.2-4.0); Potassium, Blood 4.1 mmol/L (3.5-5.5); Total Protein, Blood 7.5 g/dL (6.4-8.2)
[2024-08-19 18:29] LABS: BASOPHILS ABSOLUTE AUTO 0.07 K/mm3 (0.00-0.23); BASOPHILS PERCENT AUTO 0 % (0-2); EOSINOPHILS ABSOLUTE AUTO 0.06 K/mm3 (0.00-0.68); EOSINOPHILS PERCENT AUTO 0 % (0-6); Hematocrit 46.6 % (33.0-51.0); Hemoglobin 15.7 g/dL (11.5-16.0); IMMATURE GRAN ABSOLUTE AUTO 0.17 K/mm3 (0.00-0.10); IMMATURE GRAN PERCENT AUTO 1 % (0-1); LYMPHOCYTES ABSOLUTE AUTO 4.09 K/mm3 (0.84-5.20); LYMPHOCYTES PERCENT AUTO 18 % (21-46); MONOCYTES ABSOLUTE AUTO 1.81 K/mm3 (0.16-1.47); MONOCYTES PERCENT AUTO 8 % (4-13); Mean Corpuscular HGB 29.5 pg (26.0-34.0); Mean Corpuscular HGB Conc 33.7 g/dL (31.5-36.5); Mean Corpuscular Volume 88 fL (80-100); NEUTROPHILS ABSOLUTE AUTO 16.87 K/mm3 (1.96-9.15); NEUTROPHILS PERCENT AUTO 73 % (41-73); Platelet Count 253 K/mm3 (150-400); RDW Coefficient Variation 16.4 % (11.7-14.2); RDW Standard Deviation 52.2 fL (35.1-46.3); Red Blood Cell Count 5.32 M/mm3 (3.80-5.20); White Blood Cell Count 23.07 K/mm3 (4.00-11.30)
[2024-08-19 18:59] LABS: Influenza A, PCR NEGATIVE (NEGATIVE); Influenza B, PCR NEGATIVE (NEGATIVE); Resp Syncytial Virus, PCR NEGATIVE (NEGATIVE); SARS-Cov-2 (COVID-19) PCR, MMC NEGATIVE (NEGATIVE)
[2024-08-19] MEDS ORDERED: Azithromycin 500 MG in NS 250 ML IV ONE (19:05)
[2024-08-19] MEDS ORDERED: NS 1,000 ML IV SCH ×2 (19:05→22:10)
[2024-08-19] MEDS ORDERED: CefTRIAXone Sodium 1,000 MG in NS 100 ML IV ONE (19:05)
[2024-08-19] MEDS ORDERED: Ondansetron HCl 2 MG / ML 2ML Vial IV PRN (22:05)
[2024-08-19] MEDS ORDERED: Albuterol 2.5 MG/3 ML VIAL INH PRN (22:05)
[2024-08-19] MEDS ORDERED: Ipratropium/Albuterol SulF 2.5-0.5MG/3 ML Amp INH SCH (22:05)
[2024-08-19] MEDS ORDERED: FLU VACC TS2024-25(6MOS UP)/PF 45 MCG/0.5 ML SYRINGE IM ONE (22:05)
[2024-08-19] MEDS ORDERED: Morphine Sulfate 15 MG TABCR PO SCH (23:00)
[2024-08-19] MEDS ORDERED: PredniSONE 10 MG Tab PO SCH (23:00)
[2024-08-19] MEDS ORDERED: Mometasone/Formoterol MDI 200/5 mcg 13 GM INH SCH (23:45)
[2024-08-19 23:51] VITALS: BP 114/81
[2024-08-20] MEDS ORDERED: FURO20 PO
--- NOTE | 2024-08-20 00:55 | NUR ---
ADMIT NOTE REPORT WAS RECEIVED FROM THE ER AND PT WAS TRANSPORTED TO ROOM 312 ON THE [facility] AND TRANSFERRED OVER TO HER BED. PT ALERT ORIENTED X 4 ABLE TO VERBALIZE NEEDS SHE HAS BRUISES TO BILATERAL ARMS AND SOME REDNESS TOP HER BILATERAL FEET. C/O GENERALIZED PAIN SHE WAS GIVEN HER MS CONTIN THAT SHE TAKES ROUTINE AT HOME. LUNG SOUNDS WITH WHEEZES BILAT. SHE WAS ORIENTED TO HER ROOM AND STAFF. SHES RESTING IN BED AT THIS TIME WITH HER CALL LIGHT IN REACH
[2024-08-20] MEDS ORDERED: Lactated Ringer's 1,000 ML IV SCH (04:00)
[2024-08-20 05:18] VITALS: BP 121/69
--- NOTE | 2024-08-20 05:33 | NUR ---
SHIFT SUMMARY PT WAS ADMITTED AT 2340 LAST NIGHT. ALERT ORIENTED X 4 ABLE TO VERBALIZE NEEDS CALLS APPROPRIATELY. SHES BEEN SLEEPING MOST OF THE NIGHT SINCE ADMIT. HER LACTIC WAS 5.1 AT 2300. WROTE ORDERS FOR LR AT 250 X 1 LITER. SHE CONTINUES ON THAT AT THIS TIME AND WILL HAVE A REPEAT LACTIC AT 0613. SHE REMAINS ON 4L VIA NC NO C/O SOB AT THIS TIME. SHE C/O GENERALIZED BODY PAIN AND WAS GIVEN HER ROUTINE PAIN MEDS OF MS CONTIN. SHE WAS GIVEN A DOSE OF ZITHROMAX AND ROCEPHIN IN THE ER LAST NIGHT. SHE REQUIRES SBA TO USE THE COMMODE. SHE HAS EXPIRATORY WHEEZES BILAT RESTING IN BED AT THIS TIME WITH CALL LIGHT IN REACH
[2024-08-20 07:14] LABS: Hematocrit 44.6 % (33.0-51.0); Hemoglobin 14.8 g/dL (11.5-16.0); Mean Corpuscular HGB 29.1 pg (26.0-34.0); Mean Corpuscular HGB Conc 33.2 g/dL (31.5-36.5); Mean Corpuscular Volume 88 fL (80-100); Mean Platelet Volume 8.7 fL (9.1-12.4); Platelet Count 248 K/mm3 (150-400); RDW Coefficient Variation 15.9 % (11.7-14.2); RDW Standard Deviation 52.3 fL (35.1-46.3); Red Blood Cell Count 5.08 M/mm3 (3.80-5.20)
[2024-08-20 07:29] LABS: Bun/Creatinine Ratio 27.7 (12.0-20.0); Calcium, Blood 8.9 mg/dL (8.5-10.1); Creatinine, Blood 0.61 mg/dL (0.40-1.00); Potassium, Blood 4.3 mmol/L (3.5-5.5)
[2024-08-20 07:39] VITALS: BP 106/57
--- NOTE | 2024-08-20 07:45 | NUR ---
CITICAL RESULT REPORTED BY REJI FROM LAB. LACTIC ACID 4.2, DR. BAINS CALLED VIA CELLPHONE. NO NEW ORDERS AT THIS TIME.
[2024-08-20] MEDS ORDERED: Enoxaparin 40 MG/0.4 ML SYR SC SCH (09:00)
--- NOTE | 2024-08-20 11:29 | NUR ---
Spiritual Care visit. Pt. is awake in bed and welcomed my visit. Pt. was pleasant. Facilitated a life review. Listened with interest and empathy. Pt. verbalized an expecation to be discharged later today, and also verbalized that she felt confidant about heading home, Pt. displayed evidence of increased trust over the course ofthe visit. Prayed for Pt. Pt. verbalized gratitude for the spiritual care visit.
[2024-08-20] MEDS ORDERED: Prednisone10 MG PO (12:12)
[2024-08-20] MEDS ORDERED: AZIT250 PO (12:13)
[2024-08-20] MEDS ORDERED: FLUTICASONE-SA1 EAC2 INH (12:14)
--- NOTE | 2024-08-20 14:58 | NUR ---
DISHCARGE NOTE PATIENT A/OX4, ABLE TO MAKE NEEDS KNOWN. PLEASANT AND COOPERATVIE WITH CARE. PATIENT EAGER FOR DISCHARGE, MEDICATIONS FAXED TO [facility] [address] PER PATIENT REQUEST. DISCHARGE MEDICATIONS DISCUSSED WITH PATIENT AND FOLLOW UP APPOINTMENT WITH PRIMARY CARE WITHIN 3 DAYS. PATIENT AGREEABLE TO DISCHARGE PLAN. PATIENT ON 4 LPM OXYGEN VIA NASAL CANNULA, TOLERATING WELL, WHICH IS BASELINE. PATIENT REPORTED SHE DROVE HERSELF TO THE HOSPITAL AND PLANS TO DRIVE HERSELF HOME. CHARGE NURSE AND RESTUARANT CREW WORKER AWARE. PATIENT DENIES ANY OTHER CONCERNS AT THIS TIME. IVs REMOVED. PATIENT ASSISTED TO HER OWN VEHICLE VIA WHEELCHAIR WITH SUPPLEMENTAL OXYGEN AND ASSISTED WITH CONNECTING TO HER PORTABLE OXYGEN MACHINE. NO OTHER CONCERNS AT THIS TIME.
== END 2024-08-20 13:45 | disposition home or self-care (01) ==
LOC: ER 17:30 → MEDS 17:31 → ENPENDDIS 08-20 11:49 → MEDS 08-20 13:45
PROVIDERS: Emergency Medicine; Nurse Practitioner Acute Care; ADMIT Student in an Organized Health Care Education/Training Program
DX: J44.1 Chronic obstructive pulmonary disease with (acute) exacerbation (principal); J96.21 Acute and chronic respiratory failure with hypoxia; E87.20 Acidosis, unspecified; R65.10 Systemic inflammatory response syndrome (SIRS) of non-infectious origin without acute organ dysfunction; I50.9 Heart failure, unspecified; K21.9 Gastro-esophageal reflux disease without esophagitis; M79.7 Fibromyalgia; G89.29 Other chronic pain; M81.0 Age-related osteoporosis without current pathological fracture; F11.20 Opioid dependence, uncomplicated; Z79.52 Long term (current) use of systemic steroids; Z79.899 Other long term (current) drug therapy; Z88.5 Allergy status to narcotic agent; Z88.8 Allergy status to other drugs, medicaments and biological substances; Z91.018 Allergy to other foods; Z90.49 Acquired absence of other specified parts of digestive tract; Z90.710 Acquired absence of both cervix and uterus
CPT/HCPCS: 0241U; 36415; 71045; 80048; 80053; 83605; 83880; 84484; 85025; 85027; 93005; 93010; 94640; 94644; 94664; 94760; 96361; 96365; 96372; 96375; 99285-25; A9270; G0378; J0456; J0696; J1650; J2919; J7030; J7050; J7120; J7512